=== PATIENT | female | born 1960 | race Caucasian/White ===

== ENCOUNTER → 2017-09-09 | Outpatient (CLI) | payer BC ==
--- NOTE | 2017-09-11 09:09 | MM ---
Reason for exam: screening (asymptomatic). Last mammogram was performed 3 years and 11 months ago. History: Patient is postmenopausal and is nulliparous. Family history of breast cancer in sister at age 58 and breast cancer in maternal grandmother. Took estrogen for 8 months. Physical Findings: A clinical breast exam by your physician is recommended on an annual basis and results should be correlated with mammographic findings. MG Screening Mammo w CAD Bilateral CC and MLO view(s) were taken. Prior study comparison: September 28, 2013, bilateral MG screening mammo w CAD. September 26, 2012, [facility] DIGITAL RIGHT MAMMOGRAM w/CAD. The breast tissue is heterogeneously dense. This may lower the sensitivity of mammography. There is chronic nodularity in the right breast. Focal asymmetry central left breast just lateral to the retroareolar plane appears more defined. These results were verbally communicated with the patient and result sheet given to the patient on 09/09/17. ASSESSMENT: Incomplete: need additional imaging evaluation, BI-RAD 0 RECOMMENDATION: Special view mammogram of the left breast. If lesion persists on supplemental views, image directed ultrasound is recommended. [facility] will attempt to contact patient to return for supplemental views and ultrasound if indicated.
== END | disposition home or self-care (01) ==
LOC: RADMAMWWP 12:36
PROVIDERS: ATTEND Obstetrics & Gynecology
DX: Z12.31 Encounter for screening mammogram for malignant neoplasm of breast (principal)
CPT/HCPCS: 77067

== ENCOUNTER → 2017-09-24 | Outpatient (CLI) | payer BC ==
--- NOTE | 2017-09-24 10:27 | MM ---
Reason for exam: additional evaluation requested from abnormal screening. Last mammogram was performed less than 1 month ago. History: Patient is postmenopausal and is nulliparous. Family history of breast cancer in sister at age 58 and breast cancer in maternal grandmother. Took estrogen for 8 months. Physical Findings: Nurse did not find any significant physical abnormalities on exam. MG Work Up Mamm w CAD LT Spot compression CC, LM, and CCRM view(s) were taken of the left breast. Prior study comparison: September 09, 2017, bilateral MG screening mammo w CAD. September 28, 2013, bilateral MG screening mammo w CAD. The breast tissue is heterogeneously dense. This may lower the sensitivity of mammography. The previously seen lateral asymmetry appears similar to the exam of 2012. These results were verbally communicated with the patient and result sheet given to the patient on 09/24/17. ASSESSMENT: Benign, BI-RAD 2 RECOMMENDATION: Return to routine screening mammogram schedule for both breasts.
== END | disposition home or self-care (01) ==
LOC: RADMAMWWP 09:29
PROVIDERS: ATTEND Obstetrics & Gynecology
DX: R92.8 Other abnormal and inconclusive findings on diagnostic imaging of breast (principal)
CPT/HCPCS: 77065

== ENCOUNTER → 2017-10-29 | Outpatient (CLI) | payer BC ==
--- NOTE | 2017-10-29 14:11 | BD ---
EXAMINATION TYPE: Axial Bone Density DATE OF EXAM: 10/29/2017 COMPARISON: DEXA bone scan August 31, 2011 CLINICAL HISTORY: Known osteoporosis per order. Height: 4 FT 11 1/4 IN Weight: 151 FRAX RISK QUESTIONS: Secondary Osteoporosis: 3. Menopause before 45: YES Current Tobacco Use: YES RISK FACTORS HISTORY OF: Active: YES Postmenopausal woman: AGE 45 MEDICATIONS: Additional Medications: NONE Additional History: EXAM MEASUREMENTS: Bone mineral densitometry was performed using the [employer] System. Bone mineral density as measured about the Lumbar spine is: ----- L1-L4(G/cm2): 0.959 T Score Values are as follows: ----- L2: -1.8 ----- L3: -1.8 ----- L4: -1.7 ----- L1-L4: -1.8 Bone mineral density has: DECREASED -5.4 % since study of: 2013 Bone mineral density about the R hip (g/cm2): 0.859 Bone mineral density about the L hip (g/cm2): 0.888 T Score values are as follows: -----R Neck: -1.3 -----L Neck: -1.1 -----R Total: -0.5 -----L Total: -0.1 Bone mineral density has: DECREASED -0.2 % since study of: 2013 IMPRESSION: Osteopenia (T Score between -2.5 and -1) persists in the low back and both hips. There is slightly increased risk of fracture and the patient may be considered for treatment. Re-Screen 2-5 years. NOTE: T-SCORE=SD OF THE YOUNG ADULT MEAN.
== END | disposition home or self-care (01) ==
LOC: RADBDWWP 09:16
PROVIDERS: ATTEND Obstetrics & Gynecology
DX: Z13.820 Encounter for screening for osteoporosis (principal); M85.88 Other specified disorders of bone density and structure, other site; M85.852 Other specified disorders of bone density and structure, left thigh; M85.851 Other specified disorders of bone density and structure, right thigh
CPT/HCPCS: 77080

== ENCOUNTER → 2018-01-27 | Outpatient (CLI) | payer BC ==
[2018-01-27 10:28] LABS: HCT 45.8 % (34.0-46.0); HGB 15.2 gm/dL (11.4-16.0); MCH 30.5 pg (25.0-35.0); MCHC 33.2 g/dL (31.0-37.0); MCV 91.7 fL (80.0-100.0); Mean Platelet Volume 6.1; Platelet Count 303 k/uL (150-450); RBC 4.99 m/uL (3.80-5.40); RDW 13.2 % (11.5-15.5); WBC 7.6 k/uL (3.8-10.6)
[2018-01-27 10:49] LABS: ALT 12 U/L (9-52); AST 17 U/L (14-36); Albumin 4.1 g/dL (3.5-5.0); Alkaline Phosphatase 71 U/L (38-126); Anion Gap 10 mmol/L; Blood Urea Nitrogen 13 mg/dL (7-17); Calcium 9.3 mg/dL (8.4-10.2); Carbon Dioxide 24 mmol/L (22-30); Chloride 108 mmol/L (98-107); Cholesterol 260 mg/dL (<200); Glucose 100 mg/dL (74-99); HDL Cholesterol 65 mg/dL (40-60); LDL Cholesterol,Calculated 170 mg/dL (0-99); Potassium 4.7 mmol/L (3.5-5.1); Sodium 142 mmol/L (137-145); Total Bilirubin 0.6 mg/dL (0.2-1.3); Total Protein 7.2 g/dL (6.3-8.2); Triglycerides 124 mg/dL (<150)
[2018-01-27 10:52] LABS: Appearance,Urine Clear (Clear); Bacteria,Urine Rare /hpf; Bilirubin,Urine Negative (Negative); Blood,Urine Small (Negative); Color,Urine Yellow; Glucose,Urine (UA) Negative (Negative); Ketones,Urine Negative (Negative); Leukocyte Esterase,Urine Negative (Negative); Mucus,Urine Rare /hpf; Nitrite,Urine Negative (Negative); Protein,Urine Negative (Negative); RBC,Urine 3 /hpf (0-5); Specific Gravity,Urine 1.016 (1.001-1.035); Squamous Epithelial Cell,Urine <1 /hpf (0-4); Urobilinogen,Urine <2.0 mg/dL (<2.0); WBC,Urine 1 /hpf (0-5)
== END | disposition home or self-care (01) ==
LOC: LABWHC1 09:26
PROVIDERS: ATTEND Family Medicine
DX: Z00.00 Encounter for general adult medical examination without abnormal findings (principal); Z13.9 Encounter for screening, unspecified
CPT/HCPCS: 36415; 80053; 80061; 81001; 85027; 86803

== ENCOUNTER → 2018-03-17 | Outpatient (CLI) | payer BC ==
--- NOTE | 2018-03-17 10:11 | FL ---
EXAMINATION TYPE: FL barium enema DATE OF EXAM: 03/17/2018 COMPARISON: NONE HISTORY: A previous of bowel rupture during colonoscopy with irregular bowel movements TECHNIQUE: A single contrast barium enema study is performed. FINDINGS: [employer] Ring view of the abdomen shows overall non-obstructive bowel gas pattern. No evidence of any mass or polyp, obstructing or constricting lesion throughout the colon. No evidenc e of obstruction. Area of bowel wall thickening involving the sigmoid colon suspected. Partial fillin g of the appendix noted. Occasional tiny diverticula noted in the sigmoid region. IMPRESSION: 1. Mild bowel wall thickening involving the sigmoid colon which may be at the site of prior surgery a nd related to the surgery. Correlate clinically to exclude chronic diverticulosis, mucosal lesion or mild colitis. 2. No annular constricting lesion or intraluminal filling defect. 3. Minimal changes of diverticulosis.
== END | disposition home or self-care (01) ==
LOC: RADFLMAIN 08:06
PROVIDERS: ATTEND Surgery
DX: K57.90 Diverticulosis of intestine, part unspecified, without perforation or abscess without bleeding (principal)
CPT/HCPCS: 74270

== ENCOUNTER 2018-05-28 07:35 | Day surgery (SDC) | payer BC ==
[2018-05-23 12:54] VITALS: BMI 29.2
[~2018-05-28 07:35] MED LIST: LACTATED RINGERS 1,000 ML IV SCH; LIDOCAINE 1% 20 ML VIAL (10MG/ML) FOR IV START INTRADERMA PRN
[2018-05-28 07:53] VITALS: TEMP 98
[2018-05-28] MEDS ORDERED: PROPOFOL 10 MG/ML 20 ML VIAL IV ONE (08:50)
[2018-05-28] MEDS ORDERED: LIDOCAINE 1% INJ 10MG/ML (20 ML MDV) ONE (08:50)
--- NOTE | 2018-05-28 09:07 | P.PCN ---
Date of Procedure: 05/28/18 Procedure(s) Performed: BRIEF HISTORY: Patient is a 57-year-old pleasant 8 female, scheduled for an elective colonoscopy as a part of evaluation of intermittent lower abdominal pain, change in bowel habits and rectal bleeding for the last 6 months duration. She had a colonoscopy with Dr. cárdenas, which was complicated with microperforation requiring conservative management. PROCEDURE PERFORMED: Colonoscopy with cold biopsy. PREOPERATIVE DIAGNOSIS: Change in bowel habits/intermittent rectal bleeding and lower abdominal pain. IV sedation per Anesthesia. PROCEDURE: After informed consent was obtained, the patient, was brought into the endoscopy unit. IV sedation was administered by Anesthesia under continuous monitoring. Digital rectal examination was normal. Initially the Olympus CF- 160 flexible video pediatric colonoscope was then inserted in the rectum, gradually advanced into the cecum without any difficulty. Careful examination was performed as the scope was gradually being withdrawn. Ileocecal valve and the appendiceal orifice were visualized and appeared normal. Prep was excellent. Mucosa of the cecum, ascending colon, transverse colon, descending colon, appeared normal. In the distal sigmoid colon extensive from 20-30 cm from the anal verge there was patchy areas of mucosal erythema and scattered diverticulosis all of which consistent with diverticular related colitis and biopsies were done from this area. Also there was a 3 mm polyp in the distal sigmoid colon that was removed by cold biopsy. Rest of the sigmoid colon, and rectum appeared normal. Retroflexion was performed in the rectum and no lesions were seen. The patient tolerated the procedure well. IMPRESSION: Mild patchy areas of erythema in the distal sigmoid colon extending from 20-30 cm from the anal verge consistent with mild diverticular colitis Scattered sigmoid diverticulosis 2-3 mm sigmoid colon polyp status post removal by cold biopsy RECOMMENDATIONS: Findings of this examination were discussed with the patient as well as a family. She was advised to follow with the biopsy results. If the biopsy shows adenoma she can have a repeat colonoscopy in 5 years.
[2018-05-28 09:23] VITALS: RESP 16
[2018-05-28 09:45] VITALS: BP 139/84; PULSE 51
== END 2018-05-28 10:26 | disposition home or self-care (01) ==
LOC: ORWHC2ENDO 07:35
PROVIDERS: ATTEND Internal Medicine Gastroenterology
DX: K63.5 Polyp of colon (principal); R10.30 Lower abdominal pain, unspecified; K62.5 Hemorrhage of anus and rectum; F17.210 Nicotine dependence, cigarettes, uncomplicated; Z79.899 Other long term (current) drug therapy
CPT/HCPCS: 88305; 45380; J2001; J2704

== ENCOUNTER → 2018-11-18 | Outpatient (CLI) | payer BC ==
--- NOTE | 2018-11-19 13:50 | MM ---
Reason for exam: screening (asymptomatic). Last mammogram was performed 1 year and 2 months ago. History: Patient is postmenopausal and is nulliparous. Family history of breast cancer in sister at age 58 and breast cancer in maternal grandmother. Took estrogen for 8 months. Physical Findings: A clinical breast exam by your physician is recommended on an annual basis and results should be correlated with mammographic findings. MG Screening Mammo w CAD Bilateral CC and MLO view(s) were taken. Prior study comparison: September 24, 2017, left breast MG work up mamm w CAD LT. September 09, 2017, bilateral MG screening mammo w CAD. The breast tissue is heterogeneously dense. This may lower the sensitivity of mammography. No suspicious abnormality. No significant changes when compared with prior studies. ASSESSMENT: Negative, BI-RAD 1 RECOMMENDATION: Routine screening mammogram of both breasts in 1 year.
== END | disposition home or self-care (01) ==
LOC: RADMAMWWP 07:51
PROVIDERS: ATTEND Obstetrics & Gynecology
DX: Z12.31 Encounter for screening mammogram for malignant neoplasm of breast (principal); Z80.3 Family history of malignant neoplasm of breast
CPT/HCPCS: 77067

== ENCOUNTER → 2020-02-17 | Outpatient (CLI) | payer BC ==
--- NOTE | 2020-02-17 12:20 | BD ---
EXAMINATION TYPE: Axial Bone Density DATE OF EXAM: 02/17/2020 COMPARISON: 10.29.2017 CLINICAL HISTORY: 59 YR OLD FEMALE...M81.0 KNOWN OSTEOPOROSIS.. Height: 59.4 Weight: 146 FRAX RISK QUESTIONS: Secondary Osteoporosis: YES 3. Menopause before 45: YES Current Tobacco Use: YES RISK FACTORS HISTORY OF: Postmenopausal woman: YES, AT 45 YRS Hyperparathyroidism: NO Adrenal Insufficiency: NO MEDICATIONS: Osteoporosis Medications: YES, FOSAMAX FOR ABOUT 2-3 YRS Additional Medications: VIT D Additional History: NOTHING ADDITIONAL TO ADD HERE EXAM MEASUREMENTS: Bone mineral densitometry was performed using the [employer]Flow™ System. Bone mineral density as measured about the Lumbar spine is: ----- L1-L4(G/cm2): 1.021 T Score Values are as follows: ----- L1: -1.8 ----- L2: -1.5 ----- L3: -1.6 ----- L4: -0.7 ----- L1-L4: -1.3 Bone mineral density has: Increased 6.7%SINCE LAST STUDY OF 10.29.2017 Bone mineral density about the R hip (g/cm2): 0.960 Bone mineral density about the L hip (g/cm2): 1.060 T Score values are as follows: -----R Neck: -1.3 -----L Neck: -0.7 -----R Total: -0.4 -----L Total: 0.4 Bone mineral density has: Increased 3.9% SINCE STUDY OF 10.29.2017 FRAX%s: THERE IS A 7.1% CHANCE FOR A MAJOR OSTEOPOROTIC FX AND A 0.8% FOR HIP.....PROBABILITY FOR F X IN 10 YRS TIME IMPRESSION: Lumbar osteopenia. NOTE: T-SCORE=SD OF THE YOUNG ADULT MEAN.
--- NOTE | 2020-02-18 08:24 | MM ---
Reason for exam: screening (asymptomatic). Last mammogram was performed 1 year and 3 months ago. History: Patient is postmenopausal and is nulliparous. Family history of breast cancer in sister at age 58 and breast cancer in maternal grandmother. Took estrogen for 8 months. Physical Findings: A clinical breast exam by your physician is recommended on an annual basis and results should be correlated with mammographic findings. MG Screening Mammo w CAD Bilateral CC and MLO view(s) were taken. Prior study comparison: November 18, 2018, bilateral MG screening mammo w CAD. September 24, 2017, left breast MG work up mamm w CAD LT. The breast tissue is heterogeneously dense. This may lower the sensitivity of mammography. There is chronic nodularity in the right breast. There is no discrete abnormality. ASSESSMENT: Benign, BI-RAD 2 RECOMMENDATION: Routine screening mammogram of both breasts in 1 year.
== END | disposition home or self-care (01) ==
LOC: RADMAMWWP 07:44
PROVIDERS: ATTEND Obstetrics & Gynecology
DX: Z12.31 Encounter for screening mammogram for malignant neoplasm of breast (principal); M85.88 Other specified disorders of bone density and structure, other site; M81.0 Age-related osteoporosis without current pathological fracture; Z80.3 Family history of malignant neoplasm of breast
CPT/HCPCS: 77067; 77080

== ENCOUNTER → 2021-10-12 | Outpatient (CLI) | payer BC ==
--- NOTE | 2021-10-12 13:33 | MM ---
Reason for Exam: Screening (asymptomatic). Last mammogram was performed 1 year(s) and 8 month(s) ago. Patient History: Menarche at age 14. Patient has no children. Postmenopausal. Estrogen for 8 months. Maternal grandmother had breast cancer. Sister had breast cancer, age 58. Risk Values: Yun 5 year model risk: 2.8%. NCI Lifetime model risk: 13.9%. Prior Study Comparison: 09/24/2017 Left Diagnostic Mammogram, [facility]. 11/18/2018 Bilateral Screening Mammogram, [facility]. 02/17/2020 Bilateral Screening Mammogram, [facility]. Tissue Density: The breast tissue is heterogeneously dense. This may lower the sensitivity of mammography. Findings: Analyzed By CAD. Stable chronic nodularity medially in the right breast. There is no suspicious group of microcalcifications or new suspicious mass in either breast. Overall Assessment: Benign, BI-RAD 2 Management: Screening Mammogram of both breasts in 1 year. A clinical breast exam by your physician is recommended on an annual basis and results should be correlated with mammographic findings. Electronically signed and approved by: Eduardo Houston M.D.
== END | disposition home or self-care (01) ==
LOC: RADMAMWWP 09:33
PROVIDERS: ATTEND Family Medicine
DX: Z12.31 Encounter for screening mammogram for malignant neoplasm of breast (principal); Z78.0 Asymptomatic menopausal state; Z80.3 Family history of malignant neoplasm of breast
CPT/HCPCS: 77067

== ENCOUNTER → 2022-10-16 | Outpatient (CLI) | payer BC ==
--- NOTE | 2022-10-16 19:14 | BD ---
EXAMINATION TYPE: Axial Bone Density DATE OF EXAM: 10/16/2022 CLINICAL HISTORY: 62 years old Female. ICD-10 CODE: M85.80 DISORDER OF BONE Height: 60 Weight: 148 FRAX RISK QUESTIONS: History of Fracture in Adulthood: no Secondary Osteoporosis: yes 3. Menopause before 45: yes, age 45 Current Tobacco Use: yes RISK FACTORS HISTORY OF: Family History of Osteoporosis: no Active: yes Diet low in dairy products/other sources of calcium: no Postmenopausal woman: yes, age 45 Lost more than 2 inches in height since high school: no Frequent falls: no Poor Health: no MEDICATIONS: Osteoporosis Medications: yes Which medication: Actonel How Lon-6 years Additional Medications: no EXAM MEASUREMENTS: Bone mineral densitometry was performed using the [employer] System. Bone mineral density as measured about the Lumbar spine is: ----- L1-L4(G/cm2): 0.994 T Score Values are as follows: ----- L1: -2.2 ----- L2: -1.3 ----- L3: -1.2 ----- L4: -1.6 ----- L1-L4: -1.5 Z Score Values are as follows: ----- L1: -1.0 ----- L2: 0.0 ----- L3: 0.0 ----- L4: -0.4 ----- L1-L4: -0.3 Bone mineral density has: Decreased -2.6% since study of: 02/17/2020 Bone mineral density about the R hip (g/cm2): 0.943 Bone mineral density about the L hip (g/cm2): 0.983 T Score values are as follows: -----R Neck: -1.5 -----L Neck: -1.2 -----R Total: -0.5 -----L Total: -0.2 Z Score values are as follows: -----R Neck: -0.3 -----L Neck: 0.0 -----R Total: 0.4 -----L Total: 0.7 Bone mineral density has: Decreased -4.7% since study of: 02/17/2020 FRAX%s: The graph provided illustrates a 8.4% chance for a major osteoporotic fx and a 1.3% chance fo r the hips probability for fx in 10 years time. IMPRESSION: Osteopenia (T Score between -2.5 and -1). There is slightly increased risk of fracture and the patient may be considered for treatment. Re-Screen 2-5 years. NOTE: T-SCORE=SD OF THE YOUNG ADULT MEAN.
--- NOTE | 2022-10-17 07:42 | MM ---
Reason for Exam: Screening (asymptomatic). Last screening mammogram was performed 12 month(s) ago. Patient History: Menarche at age 14. Patient has no children. Postmenopausal. Estrogen for 8 months. Maternal grandmother had breast cancer, age 40. Sister had breast cancer, age 58. Risk Values: Yun 5 year model risk: 2.9%. NCI Lifetime model risk: 13.5%. Prior Study Comparison: 11/18/2018 Bilateral Screening Mammogram, [facility]. 02/17/2020 Bilateral Screening Mammogram, [facility]. 10/12/2021 Bilateral MG screening mammo w CAD, [facility]. Tissue Density: The breast tissue is heterogeneously dense. This may lower the sensitivity of mammography. Findings: Analyzed By CAD. There is no suspicious group of microcalcifications or new suspicious mass in either breast. Chronic nodularity within the right breast. Overall Assessment: Benign, BI-RAD 2 Management: Screening Mammogram of both breasts in 1 year. A clinical breast exam by your physician is recommended on an annual basis and results should be correlated with mammographic findings. Electronically signed and approved by: Hayden Rowley D.O.
== END | disposition home or self-care (01) ==
LOC: RADMAMWWP 09:50
PROVIDERS: ATTEND Family Medicine
DX: Z12.31 Encounter for screening mammogram for malignant neoplasm of breast (principal); M85.89 Other specified disorders of bone density and structure, multiple sites; Z78.0 Asymptomatic menopausal state; Z80.3 Family history of malignant neoplasm of breast
CPT/HCPCS: 77067; 77080

== ENCOUNTER → 2023-10-22 | Outpatient (CLI) | payer BC ==
--- NOTE | 2023-10-23 08:39 | MM ---
Reason for Exam: Screening (asymptomatic). Last screening mammogram was performed 12 month(s) ago. Patient History: Menarche at age 14. Patient has no children. Postmenopausal. Estrogen for 8 months. Maternal grandmother had breast cancer, age 40. Sister had breast cancer, age 58. Risk Values: Yun 5 year model risk: 3.0%. NCI Lifetime model risk: 13.2%. Prior Study Comparison: 02/17/2020 Bilateral Screening Mammogram, [facility]. 10/12/2021 Bilateral MG screening mammo w CAD, [facility]. 10/16/2022 Bilateral MG screening mammo w CAD, [facility]. Tissue Density: The breasts are heterogeneously dense, which may obscure small masses. Findings: Analyzed By CAD. There is no suspicious group of microcalcifications or new suspicious mass in either breast. Stable well-circumscribed subcentimeter chronic nodularity inner margin right breast compared to multiple prior exams. Overall Assessment: Benign, BI-RAD 2 Management: Screening Mammogram of both breasts in 1 year. . Patient should continue monthly self-breast exams. A clinical breast exam by your physician is recommended on an annual basis. This exam should not preclude additional follow-up of suspicious palpable abnormalities. Note on Yun scores and lifetime risk: 1. A Yun score greater than 3% is considered moderate risk. If this is the case, consider specialist referral to assess eligibility for a risk reducing agent. 2. If overall lifetime risk for the development of breast cancer is 20% or higher, the patient may qualify for future screening with alternating mammogram and breast MRI. Electronically signed and approved by: Carrington Tucker M.D. Radiologis
== END | disposition home or self-care (01) ==
LOC: RADMAMWWP 10:13
PROVIDERS: ATTEND Family Medicine
DX: Z12.31 Encounter for screening mammogram for malignant neoplasm of breast (principal); Z80.3 Family history of malignant neoplasm of breast; Z78.0 Asymptomatic menopausal state
CPT/HCPCS: 77063; 77067

== ENCOUNTER → 2024-10-22 | Outpatient (CLI) | payer BC ==
--- NOTE | 2024-10-22 16:15 | MM ---
Reason for Exam: Screening (asymptomatic). Last screening mammogram was performed 12 month(s) ago. Patient History: Menarche at age 14. Patient has no children. Postmenopausal. Estrogen for 8 months. Maternal grandmother had breast cancer, age 40. Sister had breast cancer, age 58. Risk Values: Yun 5 year model risk: 3.1%. NCI Lifetime model risk: 12.8%. Prior Study Comparison: 09/09/2017 Bilateral Screening Mammogram, [facility]. 09/24/2017 Left Diagnostic Mammogram, [facility]. 11/18/2018 Bilateral Screening Mammogram, [facility]. 02/17/2020 Bilateral Screening Mammogram, [facility]. 10/12/2021 Bilateral MG screening mammo w CAD, [facility]. 10/16/2022 Bilateral MG screening mammo w CAD, [facility]. 10/22/2023 Bilateral MG 3D screening mammo w/cad, [facility]. Tissue Density: The breasts are heterogeneously dense, which may obscure small masses. Findings: Analyzed By CAD. There is no suspicious group of microcalcifications or new suspicious mass in either breast. Chronic nodularity right breast benign-appearing lymph node medial margin right breast stable. Overall Assessment: Benign, BI-RAD 2 Management: Screening Mammogram of both breasts in 1 year. . Patient should continue monthly self-breast exams. A clinical breast exam by your physician is recommended on an annual basis. This exam should not preclude additional follow-up of suspicious palpable abnormalities. Note on Yun scores and lifetime risk: 1. A Yun score greater than 3% is considered moderate risk. If this is the case, consider specialist referral to assess eligibility for a risk reducing agent. 2. If overall lifetime risk for the development of breast cancer is 20% or higher, the patient may qualify for future screening with alternating mammogram and breast MRI. [facility], , 10/22/2024 10:14 AM. Electronically signed and approved by: Carrington Tucker M.D. Radiologis
== END | disposition home or self-care (01) ==
LOC: RADMAMWWP 09:49
PROVIDERS: ATTEND Family Medicine
DX: Z12.31 Encounter for screening mammogram for malignant neoplasm of breast (principal); R92.333 Mammographic heterogeneous density, bilateral breasts; Z78.0 Asymptomatic menopausal state; Z80.3 Family history of malignant neoplasm of breast
CPT/HCPCS: 77067